=== PATIENT | female | born 2000 | race Caucasian/White ===

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

== ENCOUNTER 2020-09-27 06:28 | Inpatient (IN) | payer OTHER ==
[2020-09-27] VITALS (25 sets, daily range): BP systolic 104–135; BP diastolic 55–82
[~2020-09-27] VITALS: Ht 165.1 cm; Wt 71.9 kg
[2020-09-27] MEDS ORDERED: LR 1,000 ML IV SCH (07:50)
[2020-09-27 07:56] LABS: HEMATOCRIT 35.8 % (36.0-47.0); HEMOGLOBIN 11.5 g/dl (12.0-15.5); MEAN CORPUSCULAR HEMOGLOBIN 29.1 pg (27.0-33.0); MEAN CORPUSCULAR HGB CONC 32.1 g/dl (32.0-36.5); MEAN CORPUSCULAR VOLUME 90.6 fl (80.0-96.0); PLATELET COUNT, AUTOMATED 299 10^3/uL (150-450); RED BLOOD COUNT 3.95 10^6/uL (4.00-5.40)
[2020-09-27] MEDS ORDERED: LACTATED RINGER'S 1000 ML IV ONE (08:00)
--- NOTE | 2020-09-27 08:14 | HPEPDOC ---
Obstetrical History & Physical General Date of Admission Sep 27, 2020 at 06:56 Primary Care Physician: Moisés Tse MD History of Present Illness 09/27/20 40.1 WEEKS G1 PO CONTRACTIONS Q3 MINUTES MODERATE NO LOS NO VAGINAL BLEEDING Chief Complaint: Contractions, term Age: 19 : 1 Term: 0 Pre-term: 0 Abortions: 0 Livin Care Care: Good Care Number of Visits: 9 Dating Final EDC: Sep 26, 2020 Final EDC for Daily Update: Sep 26, 2020 Final EDC by: 1st trimester (US) LMP: Dec 21, 2019 1st Trimester Date: March 03, 2020 Weeks + Days: 10 Estimated Date of Confinement: Sep 26, 2020 EGA at Admission: 40.1 Antepartum Course Diagnos(e)s ACTIVE LABOR AT TERM Height (inches): 65 Pre- weight (lbs.): 126 Admission Weight (lbs.): 157.8 Past Medical History Past Obstetrical History : Past Obstetrical History: Primgravida TRAVEL GUIDE History: No pertinent history Past Medical History Medical History RESTLESS LEG SYNDROME Surgical History: Denies/None Family History Significant Family History: No pertinent family hx Social History Marital Status: Family situation: Spouse/partner home Psychosocial History: No pertinent psych hx * Smoker: non-smoker Alcohol: Denies Drugs: denies Abuse Violence Screening Have you been hit/kicked/slapp: No Have you been sexually assault: No Imunizations Tdap status: current Influenza Status: current Allergies Coded Allergies: No Known Allergies (Verified Allergy, Unknown, 09/27/20) Physical Examination Physical Examination GENERAL: Alert and oriented times three. BREAST: . ABDOMEN: Gravid and non-tender to touch. FETUS: Is vertex (VTX) by sterile vaginal examination (SVE), fetus is vertex (VTX) by Dwaine. HEART RATE: Regular rate and rhythm. LUNGS: Clear to auscultation (CTA). EXTREMITIES: No edema. No clonus. Deep tendon reflexes NORMAL Other physical findings NO ACUTE DISTRESS SF HEIGHT 40 CM VERTEX CATEGORY 1 STRIP 2CM POSTERIOR -3 STATION Vital Signs/I&O Vital Signs Date Time Temp Pulse Resp B/P (MAP) Pulse Ox O2 Delivery O2 Flow Rate FiO2 09/27/20 07:11 97 116/77 (90) Laboratory Data 24H LABS Laboratory Tests 2 09/27/20 06:59: Serology Scanned Report Hepatitis B Testing 09/27/20 07:40: Pertinent Laboratoy Data Blood Type: O+ RBC Antibody Screen: Negative HIV: Negative Hepatitis B: Negative Rapid Plasma Reagin: Nonreactive Rubella: Immune Varicella: Immune Chlamydia/Gonorrhea: Negative Group B Streptococcus: Negative Cystic Fibrosis: Negative Anatomy Ultrasound Placenta Location: Anterior Normal Anatomy: Yes Placenta Previa: No Steroid Therapy Steroid Therapy: No Vaginal Examination Dilation: 2cm Effacement: 50% Station: -3 Cervical Consistency: Soft Cervical Position: Posterior Presentation: Cephalic presentation Assessment Heart Rate (FHR): 140 Variability: Moderate Accelerations: Positive Decelerations: None Tocometer Contractions: Yes Frequency: regular, every 1-3 min. Duration: less than 60 seconds Strength: palpated as mild Assessment/Plan Assessment 19 year-old (G 1 para (P0at 40.1 weeks . Presents to Labor and Delivery (L&D) . Plan Admit and orient. Helper Marble Finisher and consent. Diet: CLEAR FLUIDS Group B Streptococcus (GBS) [negative]. Labs and intravenous (IV) per unit protocol. Counseled on Pitocin and induction of labor (IOL). Lactated Ringers (LR): [id number] mL, PRE EPIDURAL then at 125 mL/hr. Anticipate [normal spontaneous delivery ()]. C-S as appropriate. Labor and Delivery Counseling REVIEWED RISKS LABOR AND DELIVERY. DELIVERY THROUGH VAGINA MAY REQUIRE AUGMENTATION OF LABOR USE OF FORCEPS OR VACUUM WHICH MAY CAUSE LACERATIONS REQUIRE REPAIR TO VAGINA CERVIX BOWEL OR RECTUM. RISK FOR PPH REQUIRE BLOOD TRANSFUSION REMOTE HYSTERECTOMY LIFE THREATENING BLOOD LOSS. RISKS TO BABY SCRATCHES HEMATOMA SUBDURAL HEMATOMA RISK OF ICU ADMISSION. RISK OF CS DONE FOR MEDICAL INDICATIONS ONLY MAY BE ACUTE THAT NO TIME TO CONSENT BUT PROVIDER WILL DISCUSS WITH YOU REASONS EXPRESSED UNDERSTANDING CATEGORY 1 STRIP SAFE TO PROCEED Moisés Tse MD Sep 27, 2020 08:13
[2020-09-27] MEDS ORDERED: PRENTAB9 PO (08:48)
[2020-09-27] MEDS ORDERED: FENTANYL 2MCG/ML ROPIVACAINE 0.2% IN 0.9% NACL 100ML IVBAG As Ordered ONE (09:29)
[2020-09-27] MEDS ORDERED: LACTATED RINGER'S 1000 ML IV PRN (10:45)
[2020-09-27] MEDS ORDERED: EPIDURAL/PCA KEYS XX PRN (10:45)
[2020-09-27] MEDS ORDERED: NALOXONE INJ 0.4MG/1ML VIAL (J2310 PER 1MG) IV PRN (10:45)
[2020-09-27] MEDS ORDERED: diphenhydrAMINE 50MG/ML VIAL (J1200) IV PRN (10:45)
[2020-09-27] MEDS ORDERED: ONDANSETRON 4MG/2ML VIAL IV PRN ×2 (10:45→11:45)
[2020-09-27] MEDS ORDERED: ePHEDrine SULFATE 25 MG/5 ML(5MG/ML) SYRINGE IV PRN (10:45)
[2020-09-27] MEDS ORDERED: EPIDURAL COMMENT XX SCH (10:45)
[2020-09-27] MEDS ORDERED: REFRIGERATOR IV KEYS XX PRN (10:45)
[2020-09-27] MEDS ORDERED: FENTANYL/ROPIVACAINE/NACL BAG 100 ML EPIDURAL SCH (10:45)
[2020-09-27] MEDS ORDERED: OXYTOCIN 30 UNITS IN 0.9% NaCl 500ML IV BAG (J2590) As Ordered ONE (10:55)
[2020-09-27] MEDS ORDERED: OXYTOCIN DRIP 30 UNITS in IV 1 EA IV SCH (11:42)
[2020-09-27] MEDS ORDERED: ACETAMINOPHEN 500 MG TAB PO PRN (11:45)
[2020-09-27] MEDS ORDERED: BENZOCAINE 20% HEMORRHOIDAL OINTMENT 28GM TUBE TOP PRN (11:45)
[2020-09-27] MEDS ORDERED: IBUPROFEN 600MG TAB PO PRN (11:45)
[2020-09-27] MEDS ORDERED: MEASLES,MUMPS,RUBELLA VACCINE INJ (MMR-II) (90707) SC SCH (11:45)
[2020-09-27] MEDS ORDERED: DOCUSATE SODIUM 100MG CAPSULE PO PRN (11:45)
[2020-09-27] MEDS ORDERED: ACETAMINOPHEN TAB 650MG DOSE (2X325MG) PO PRN (11:45)
[2020-09-27] MEDS ORDERED: RHOGAM 300 MCG (1500 IU) INJ (J2790) IM SCH (11:45)
--- NOTE | 2020-09-27 11:51 | DNPDOC ---
[facility] Delivery Note Delivery Note DATE OF DELIVERY: [id number] at ~1120 PREDELIVERY DIAGNOSIS: 40+1 weeks gestation and active labor POST DELIVERY DIAGNOSIS: Delivered. PROCEDURE: Spontaneous vaginal delivery AUTOMOTIVE MACHINIST APPRENTICE: Dr. Barney ANESTHESIA: Neuraxial (epidural) ESTIMATED BLOOD LOSS: 200 mL. FINDINGS: 7 pound 1 ounce female , Scores 9/9, loose nuchal cord X1 DELIVERY SUMMARY: En progressed rapidly in labor after her epidural. Her membranes ruptured and the fluid was clear. Cervical exam was C/C/+2 and she had a strong urge to push. The bed was broken down and she was prepped for delivery. With excellent effort over about 10 minutes of pushing, her baby delivered. Presentation was MEHRAN with restitution to ROT. The left anterior shoulder delivered with gentle guidance followed easily by the remainder of the body. The was dried and stimulated on the field and a bulb suction was used. The infant cried vigorously and was placed on the maternal abdomen. The three vessel cord was then clamped and cut by the FOB under my direction after appropriate time delay. Third stage was then completed with gentle traction on the cord and it was productive of an intact placenta. The uterus was firmed with massage and pitocin was administered IV bolus. Inspection of the cervix, vagina, labia, and perineum revealed a midline first degree vaginal floor laceration and a left sublabial laceration. These were repaired with 4-0 vicryl suture in the usual fashion. There was excellent cosmesis and hemostasis after the repairs. The fundus was palpated again and was firm. Sponge, instrument, and needle counts were correct X2. Mother and infant stable when I left the room. DO JANNA Mujica CHRISTOPHER J. DO Sep 27, 2020 11:51
[2020-09-27] MEDS: PRENATAL VITAMINS CHEWABLE TABLET PO SCH (12:31)
[2020-09-27] MEDS: IBUPROFEN 800 MG TAB PO PRN (23:40)
[2020-09-28 06:00] VITALS: BP 104/58
--- NOTE | 2020-09-28 07:18 | IPNPDOC ---
Text Note Date of Service The patient was seen on 09/28/20. NOTE En is a 20 yo G1 now P1 who underwent an uncomplicated yesterday after being admitted for labor. There were no acute events overnight. Vitals - VSS, afebrile, normotensive General - sitting up in bed, NAD Abdomen - Fundus firm at U-2. No tenderness Extremities - No edema En is doing well and is making an appropriate recovery. Anticipate DC home tomorrow. DO Ector VS,Marnie, I+O VS, Marnie, I+O Laboratory Tests 09/27/20 07:40 Vital Signs Date Time Temp Pulse Resp B/P (MAP) Pulse Ox O2 Delivery O2 Flow Rate FiO2 09/28/20 06:00 97.4 64 16 104/58 (73) 09/27/20 18:00 97 Room Air I&O- Last 24 Hours up to 6 AM 09/28/20 06:00 Intake Total 2524.5 ml Output Total 1450 ml Balance 1074.5 ml MERT SALDIVAR DO Sep 28, 2020 07:18
[2020-09-28] MEDS ORDERED: INFLUENZA QUADRIVALENT PF VACCINE 0.5ML SYRINGE IM ONE (09:00)
[2020-09-28] MEDS: PRENATAL VITAMINS CHEWABLE TABLET PO SCH (09:31)
[2020-09-28] MEDS: IBUPROFEN 800 MG TAB PO PRN (09:31)
[2020-09-28 18:00] VITALS: BP 91/61
[2020-09-29] MEDS: IBUPROFEN 800 MG TAB PO PRN (01:47)
[2020-09-29 05:48] VITALS: BP 108/58
[2020-09-29] MEDS ORDERED: IBUP80TA PO (07:16)
[2020-09-29] MEDS ORDERED: ACET1TAB55 PO (07:16)
--- NOTE | 2020-09-29 07:21 | DS.PDOC ---
Discharge Summary General Date of Admission Sep 27, 2020 at 06:56 Date of Discharge Sep 29, 2020 Discharge Summary HOSPITAL COURSE: Ms. Mitchell is a 20 yo G1 now P1 who underwent an uncomplicated on 27Sep2020 after being admitted for active labor. Her course was otherwise unremarkable. On her day of discharge she met all appropriate discharge criteria. She was ambulating, voiding, tolerating a regular diet, and had minimal lochia. DISCHARGE MEDICATIONS: Please see below. ALLERGIES: Please see below. PHYSICAL EXAMINATION ON DISCHARGE: VITAL SIGNS: Please see below. GENERAL: AAOX3, NAD ABDOMINAL EXAMINATION: Fundus firm at U-2. No fundal tenderness EXTREMITIES: No edema PSYCHIATRIC EXAMINATION: Affect appropriate LABORATORY DATA: Please see below. ACTIVITY: Pelvic rest for 6 weeks DIET: Regular DISCHARGE PLAN: Discharge home DISPOSITION: Discharge home on 29Sep2020 . DISCHARGE INSTRUCTIONS: 1. Nothing in the vagina for 6 weeks ITEMS TO FOLLOWUP ON ON OUTPATIENT: 1. Call to schedule a visit for 6 weeks post delivery DISCHARGE CONDITION: Stable. TIME SPENT ON DISCHARGE: Greater than 20 minutes. Mert Saldivar DO Vital Signs/I&Os Vital Signs Date Time Temp Pulse Resp B/P (MAP) Pulse Ox O2 Delivery O2 Flow Rate FiO2 09/29/20 05:48 97.7 66 18 108/58 (75) 09/28/20 18:00 98 Room Air Discharge Medications Scheduled No.137/Iron/Folic Acd ( Vitamin Tablet) 1 Each Tablet, 1 TAB PO DAILY, (Reported) Scheduled PRN Acetaminophen (Acetaminophen) 325 Mg Tablet, 650 MG PO Q4HP PRN for PAIN LEVEL 1-5 Ibuprofen (Ibuprofen) 800 Mg Tablet, 800 MG PO Q8HP PRN for PAIN LEVEL 6-10 Allergies Coded Allergies: No Known Allergies (Verified Allergy, Unknown, 09/27/20) MERT SALDIVAR DO Sep 29, 2020 07:21
[2020-09-29] MEDS: PRENATAL VITAMINS CHEWABLE TABLET PO SCH (07:27)
== END 2020-09-29 09:26 | disposition home or self-care (01) | DRG 807 ==
LOC: M LDO 06:28 → M LDI 06:56 → M OBS 13:45
PROVIDERS: ADMIT Obstetrics & Gynecology; ATTEND Obstetrics & Gynecology
PROC: 10E0XZZ Delivery of Products of Conception, External Approach (ICD-10-PCS; principal; 2020-09-27)
PROC: 0HQ9XZZ Repair Perineum Skin, External Approach (ICD-10-PCS; 2020-09-27)
DX: O48.0 Post-term pregnancy (principal); Z37.0 Single live birth; Z3A.40 40 weeks gestation of pregnancy; O70.0 First degree perineal laceration during delivery